=== PATIENT | female | born 2000 | race Caucasian/White ===

== ENCOUNTER 2022-05-24 21:41 | Emergency (ER) | payer BC ==
[2022-05-24] MEDS ORDERED: LACTATED RINGERS 1,000 ML IV ONE (22:00)
[2022-05-24 22:05] LABS: BASOPHILS % (AUTO) 0 % (0-10); EOSINOPHILS % (AUTO) 0 % (0-10); HEMATOCRIT 42 % (35-52); HEMOGLOBIN 13.5 g/dL (11.5-16.0); LYMPHOCYTES # (AUTO) 1.9 10^3/uL (1.0-4.0); LYMPHOCYTES % (AUTO) 20 % (12-44); MEAN CORPUSCULAR HEMOGLOBIN 27 pg (25-34); MEAN CORPUSCULAR HGB CONC 33 g/dL (32-36); MEAN CORPUSCULAR VOLUME 82 fL (80-99); MEAN PLATELET VOLUME 11.6 fL (9.0-12.2); MONOCYTES # (AUTO) 0.5 10^3/uL (0.0-1.0); MONOCYTES % (AUTO) 5 % (0-12); NEUTROPHILS # (AUTO) 6.9 10^3/uL (1.8-7.8); NEUTROPHILS % (AUTO) 74 % (42-75); PLATELET COUNT 294 10^3/uL (130-400); WHITE BLOOD COUNT 9.4 10^3/uL (4.3-11.0)
[2022-05-24 22:14] LABS: ALBUMIN 4.6 GM/DL (3.2-4.5); CHLORIDE 105 MMOL/L (98-107); POTASSIUM 3.3 MMOL/L (3.6-5.0); SODIUM 137 MMOL/L (135-145)
[2022-05-24 22:15] LABS: CALCIUM 9.9 MG/DL (8.5-10.1)
[2022-05-24 22:16] LABS: GLUCOSE 101 MG/DL (70-105); TOTAL PROTEIN 8.6 GM/DL (6.4-8.2)
--- NOTE | 2022-05-24 22:16 | ED General ---
General Chief Complaint: Psych/Social Disorder Stated Complaint: ANXIETY Allergies and Home Medications Allergies Coded Allergies: No Known Drug Allergies (Unverified , 07/18/20) Past Lgguply-Dkleix-Drkydf Hx Seasonal Allergies Seasonal Allergies: No Past Medical History Surgeries: No Respiratory: No Cardiac: No Neurological: No Genitourinary: No Gastrointestinal: No Musculoskeletal: No Endocrine: No HEENT: No Cancer: No Psychosocial: No Integumentary: No Blood Disorders: No Physical Exam Vital Signs Vital Signs - First Documented 05/24/22 21:43 Temp 36.0 Pulse 97 Resp 18 B/P (MAP) 118/61 (80) Pulse Ox 100 O2 Delivery Room Air Capillary Refill : Height, Weight, BMI Height: '" Weight: lbs. oz. kg; 26.00 BMI Method: Progress/Results/Core Measures Suspected Sepsis SIRS Temperature: Pulse: Respiratory Rate: Laboratory Tests 05/24/22 21:55: White Blood Count 9.4 Blood Pressure / Mean: Laboratory Tests 05/24/22 21:55: Creatinine 0.77, Platelet Count 294, Total Bilirubin 1.2H Results/Orders Lab Results Laboratory Tests Test 05/24/22 21:55 05/24/22 22:40 Range/Units White Blood Count 9.4 4.3-11.0 10^3/uL Red Blood Count 5.08 3.80-5.11 10^6/uL Hemoglobin 13.5 11.5-16.0 g/dL Hematocrit 42 35-52 % Mean Corpuscular Volume 82 80-99 fL Mean Corpuscular Hemoglobin 27 25-34 pg Mean Corpuscular Hemoglobin Concent 33 32-36 g/dL Red Cell Distribution Width 13.8 10.0-14.5 % Platelet Count 294 130-400 10^3/uL Mean Platelet Volume 11.6 9.0-12.2 fL Immature Granulocyte % (Auto) 0 % Neutrophils (%) (Auto) 74 42-75 % Lymphocytes (%) (Auto) 20 12-44 % Monocytes (%) (Auto) 5 0-12 % Eosinophils (%) (Auto) 0 0-10 % Basophils (%) (Auto) 0 0-10 % Neutrophils # (Auto) 6.9 1.8-7.8 10^3/uL Lymphocytes # (Auto) 1.9 1.0-4.0 10^3/uL Monocytes # (Auto) 0.5 0.0-1.0 10^3/uL Eosinophils # (Auto) 0.0 0.0-0.3 10^3/uL Basophils # (Auto) 0.0 0.0-0.1 10^3/uL Immature Granulocyte # (Auto) 0.0 0.0-0.1 10^3/uL Sodium Level 137 135-145 MMOL/L Potassium Level 3.3 L 3.6-5.0 MMOL/L Chloride Level 105 98-107 MMOL/L Carbon Dioxide Level 14 L 21-32 MMOL/L Anion Gap 18 H 5-14 MMOL/L Blood Urea Nitrogen 9 7-18 MG/DL Creatinine 0.77 0.60-1.30 MG/DL Estimat Glomerular Filtration Rate 112 BUN/Creatinine Ratio 12 Glucose Level 101 70-105 MG/DL Calcium Level 9.9 8.5-10.1 MG/DL Corrected Calcium 8.5-10.1 MG/DL Magnesium Level 1.9 1.6-2.4 MG/DL Total Bilirubin 1.2 H 0.1-1.0 MG/DL Aspartate Amino Transf (AST/SGOT) 19 5-34 U/L Alanine Aminotransferase (ALT/SGPT) 17 0-55 U/L Alkaline Phosphatase 86 40-136 U/L Total Protein 8.6 H 6.4-8.2 GM/DL Albumin 4.6 H 3.2-4.5 GM/DL TSH [place] Testing 3.51 0.35-4.94 UIU/ML Serum Alcohol < 10 <10 MG/DL Influenza Type A (RT-PCR) Not Detected Not Detecte Influenza Type B (RT-PCR) Not Detected Not Detecte SARS-CoV-2 RNA (RT-PCR) Not Detected Not Detecte Urine Color YELLOW Urine Clarity CLEAR Urine pH 8.0 5-9 Urine Specific [place] 1.020 1.016-1.022 Urine Protein NEGATIVE NEGATIVE Urine Glucose (UA) NEGATIVE NEGATIVE Urine Ketones 3+ H NEGATIVE Urine Nitrite NEGATIVE NEGATIVE Urine Bilirubin NEGATIVE NEGATIVE Urine Urobilinogen 1.0 < = 1.0 MG/DL Urine Leukocyte Esterase NEGATIVE NEGATIVE Urine RBC (Auto) NEGATIVE NEGATIVE Urine RBC NONE /HPF Urine WBC 0-2 /HPF Urine Squamous Epithelial Cells 0-2 /HPF Urine Renal Epithelial Cells NONE /HPF Urine Crystals NONE /LPF Urine Bacteria NEGATIVE /HPF Urine Casts NONE /LPF Urine Mucus SMALL H /LPF Urine Culture Indicated NO Urine Opiates Screen NEGATIVE NEGATIVE Urine Oxycodone Screen NEGATIVE NEGATIVE Urine Methadone Screen NEGATIVE NEGATIVE Urine Propoxyphene Screen NEGATIVE NEGATIVE Urine Barbiturates Screen NEGATIVE NEGATIVE Ur Tricyclic Antidepressants Screen NEGATIVE NEGATIVE Urine Phencyclidine Screen NEGATIVE NEGATIVE Urine Amphetamines Screen POSITIVE H NEGATIVE Urine Methamphetamines Screen POSITIVE H NEGATIVE Urine Benzodiazepines Screen NEGATIVE NEGATIVE Urine Cocaine Screen NEGATIVE NEGATIVE Urine Cannabinoids Screen NEGATIVE NEGATIVE My Orders Orders - MANISH BARNARD DO Ed Iv/Invasive Line Start (05/24/22 21:49) Urine Bedside (05/24/22 21:49) Ekg Tracing (05/24/22 21:49) Monitor-Rhythm Ecg Trace Only (05/24/22 21:49) Alcohol (05/24/22 21:49) Cbc With Automated Diff (05/24/22 21:49) Comprehensive Metabolic Panel (05/24/22 21:49) Drug Screen Stat (Urine) (05/24/22 21:49) Magnesium (05/24/22 21:49) Thyroid Analyzer (05/24/22 21:49) Ua Culture If Indicated (05/24/22 21:49) Ed Iv/Invasive Line Start (05/24/22 21:49) Lactated Ringers (Lr 1000 Ml Iv Solution (05/24/22 22:00) Covid 19 Inhouse Test (05/24/22 21:49) Influenza A And B By Pcr (05/24/22 21:49) Isolation Central Supply Req (05/24/22 21:49) Medications Given in ED Current Medications Medications Dose Ordered Sig/[place] Route Start Time Stop Time Status Last Admin Dose Admin Lactated Ringer's 1,000 ml @ 0 mls/hr Q0M ONCE IV 05/24/22 22:00 05/24/22 22:01 DC 05/24/22 22:28 999 MLS/HR Vital Signs/I&O 05/24/22 21:43 Temp 36.0 Pulse 97 Resp 18 B/P (MAP) 118/61 (80) Pulse Ox 100 O2 Delivery Room Air Capillary Refill : Departure Impression Primary Impression: Methamphetamine use Disposition: 01 HOME, SELF-CARE Condition: Stable Departure-Patient Inst. Decision time for Depature: 23:30 Referrals: SELF,TIMOTHY BERRY (PCP/Family) Primary Care Physician Patient Instructions: Drug Abuse and Drug Addiction (DC), Methamphetamine Add. Discharge Instructions: NO DRUGS OR ALCOHOL!! FOLLOW UP WITH YOUR DR NEEDED All discharge instructions reviewed with patient and/or family. Voiced understanding. MANISH BARNARD DO May 24, 2022 22:16
[2022-05-24 22:17] LABS: CARBON DIOXIDE 14 MMOL/L (21-32)
[2022-05-24 22:18] LABS: BILIRUBIN,TOTAL 1.2 MG/DL (0.1-1.0)
[2022-05-24 22:20] LABS: ALKALINE PHOSPHATASE 86 U/L (40-136); CREATININE SERUM 0.77 MG/DL (0.60-1.30); GFR ESTIMATED 112
[2022-05-24 22:21] LABS: BUN/CREATININE RATIO 12
[2022-05-24 22:22] LABS: MAGNESIUM 1.9 MG/DL (1.6-2.4)
[2022-05-24 22:23] LABS: ALANINE AMINOTRANSFERASE 17 U/L (0-55)
[2022-05-24 22:43] LABS: TSH (THYROID ANALYZER) 3.51 UIU/ML (0.35-4.94)
[2022-05-24 22:53] LABS: BILIRUBIN,URINE NEGATIVE (NEGATIVE); CLARITY,URINE CLEAR; COLOR,URINE YELLOW; GLUCOSE, URINE (UA) NEGATIVE (NEGATIVE); KETONES,URINE 3+ (NEGATIVE); LEUKOCYTE ESTERASE ,URINE NEGATIVE (NEGATIVE); NITRITE,URINE NEGATIVE (NEGATIVE); PROTEIN,URINE NEGATIVE (NEGATIVE)
[2022-05-24 23:02] LABS: BACTERIA,URINE NEGATIVE /HPF; SQUAMOUS EPITHELIAL CELL,UR 0-2 /HPF; WBC,URINE 0-2 /HPF
[2022-05-24 23:03] LABS: AMPHETAMINE SCREEN, URINE POSITIVE (NEGATIVE); BARBITURATE SCREEN URINE NEGATIVE (NEGATIVE); BENZODIAZEPINES SCREEN URINE NEGATIVE (NEGATIVE); CANNABINOID SCREEN, URINE NEGATIVE (NEGATIVE); COCAINE SCREEN URINE NEGATIVE (NEGATIVE); METHADONE STAT NEGATIVE (NEGATIVE); OPIATE SCREEN URINE NEGATIVE (NEGATIVE); OXYCODONE STAT NEGATIVE (NEGATIVE); PROPOXYPHENE STAT NEGATIVE (NEGATIVE); TRICYCLIC ANTIDEPRESSANTS SCRE NEGATIVE (NEGATIVE)
[2022-05-24 23:33] VITALS: BP 117/78
== END 2022-05-24 23:37 | disposition home or self-care (01) ==
LOC: EDUNIT# 21:41 → ER 21:42
DX: F15.10 Other stimulant abuse, uncomplicated (principal); Z20.822 Contact with and (suspected) exposure to COVID-19; Z28.310 Unvaccinated for COVID-19
CPT/HCPCS: 80053; 80306; 81000; 83735; 84443; 84703; 85025; 87636; 93005; 93041; 99284; G0480; 36415; 80320

== ENCOUNTER → 2022-09-04 | Outpatient (CLI) | payer BC ==
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
== END ==
LOC: RAD FS 16:31
PROVIDERS: ATTEND Registered Nurse Community Health
DX: S09.93XA Unspecified injury of face, initial encounter (principal); Y04.8XXA Assault by other bodily force, initial encounter
CPT/HCPCS: 70150

== ENCOUNTER 2023-01-23 15:26 | Emergency (ER) | payer BC | END 2023-01-23 16:00 | disposition left against medical advice (07) | LOC: EDUNIT# 15:26 → ER FS 15:29 | DX: R06.02 Shortness of breath (principal); R42 Dizziness and giddiness; R00.0 Tachycardia, unspecified ==